=== PATIENT | female | born 1990 | race Caucasian/White ===

== ENCOUNTER → 2017-06-27 | Outpatient (CLI) | payer OTHER ==
--- NOTE | 2017-06-27 13:38 | CT ---
Study: CT abdomen and pelvis. Indication: ABD PAIN Technique: Noncontrast, venous and delayed phase CT imaging of the abdomen and pelvis obtained after intravenous administration of contrast. This exam was performed according to our departmental dose-optimization program, which includes automated exposure control, adjustment of the mA and/or kV according to patient size and/or use of iterative reconstruction technique. Comparison: None. FINDINGS: Lower chest, liver, gallbladder, pancreas, spleen, adrenal glands, kidneys, bladder, uterus, and bilateral adnexa demonstrate a normal CT appearance. Appendix not visualized. Stomach, small bowel, and colon unremarkable. No free fluid. No free air. No pathologically enlarged lymphadenopathy. No acute osseous abnormality. IMPRESSION: No CT evidence of acute abdominal or pelvic process. Electronically signed by: Chan Manuel MD 06/27/2017 1:36 PM CDT
== END | disposition home or self-care (01) ==
LOC: CT 07:44
PROVIDERS: ATTEND Emergency Medicine
DX: R10.9 Unspecified abdominal pain (principal)

== ENCOUNTER → 2019-03-12 | Outpatient (CLI) | payer OTHER | LOC: LAB.O 13:24 | PROVIDERS: ATTEND Emergency Medicine | DX: I38 Endocarditis, valve unspecified (principal) ==

== ENCOUNTER 2019-09-14 07:04 | Day surgery (SDC) | payer OTHER ==
[~2019-09-14 07:04] MED LIST: LIDOCAINE 1% 10 ML VIAL INJ ONE; PROPOFOL 200 MG/20 ML VIAL IV ONE
[2019-09-14] MEDS ORDERED: LACTATED RINGERS 0 ML ONE (07:22)
[2019-09-14] MEDS ORDERED: LACTATED RINGERS 1,000 ML ONE (07:38)
[2019-09-14] MEDS ORDERED: CLINDAMYCIN IV 900MG 50 ML IVPB ONE (07:39)
[2019-09-14] MEDS ORDERED: MIDAZOLAM INJ 5 MG/5 ML VIAL ONE (09:12)
[2019-09-14] MEDS ORDERED: fentaNYL CITRATE INJ 50 MCG/ML AMP ONE (09:12)
[2019-09-14] MEDS ORDERED: BUPIVACAINE 0.5% W/EPI 30 ML VIAL INJ ONE (09:18)
[2019-09-14 11:29] VITALS: BP 91/46; TEMP 97.8; O2SAT 99
--- NOTE | 2019-09-25 13:48 | OP ---
DATE OF PROCEDURE: 09/14/19 PREOPERATIVE DIAGNOSIS: 1. 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 POSTOPERATIVE DIAGNOSIS: 1. 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 PROCEDURE: 1. Excision of skin and subcutaneous lesion, excisional, about 5 by 3 cm and 3 cm deep. SURGEON: Brian Penaloza MD. ANESTHESIA: General and local. FINDINGS: The cyst cavities went into scar tissue. There was no evidence of a long fistulous cavity into the chest wall. All visible infected area was removed. COMPLICATIONS: None. ESTIMATED BLOOD LOSS: Minimal. CONDITION: Stable. PLAN: Discharge. INDICATION: The patient had previous heart surgery and has a persistent draining occasionally, a cystic lesion on her chest. It is indented, a deep fold and consistent with a possible fistula or just a cyst and scar. PROCEDURE: Anesthesia was induced. She was prepped and draped in sterile fashion. Elliptical incision was made around the area. The subcutaneous tissues were taken down. We followed the cystic scar tissue down to the deep tissue where the scar seemed to run out. There was no evidence of a formed fistula. It was excised and closed with multiple layers to try to get rid of the indentation she had. Everything looked good. There was no active infection. She tolerated the procedure and was awakened and taken to Recovery to be discharged. #[id number] [facility]
== END 2019-09-14 11:25 | disposition home or self-care (01) ==
LOC: AMB 07:04
PROVIDERS: ATTEND Surgery
DX: L72.9 Follicular cyst of the skin and subcutaneous tissue, unspecified (principal); L90.5 Scar conditions and fibrosis of skin; Z88.0 Allergy status to penicillin; Z88.2 Allergy status to sulfonamides; Z88.8 Allergy status to other drugs, medicaments and biological substances; Z79.899 Other long term (current) drug therapy
CPT/HCPCS: 00300; 21552; 81025; J2250; J3010; J3490; J7120